=== PATIENT | male | born 1940 | race Caucasian/White ===

== ENCOUNTER → 2016-05-29 | Outpatient (CLI) | payer MEDICARE, BC ==
[2016-05-29 09:51] LABS: ANION GAP 10 (5-19); BLOOD UREA NITROGEN 25 mg/dL (7-20); CALCIUM 9.7 mg/dL (8.4-10.2); CARBON DIOXIDE 29 mmol/L (22-30); CHLORIDE 106 mmol/L (98-107); CHOLESTEROL 112.81 mg/dL (0-200); CREATININE RESULT 0.99 mg/dL (0.52-1.25); Direct HDL 41 mg/dL (>40); GLUCOSE 95 mg/dL (75-110); POTASSIUM 4.7 mmol/L (3.6-5.0); SODIUM 144.6 mmol/L (137-145); TRIGLYCERIDES 81 mg/dL (<150)
[2016-05-29 10:01] LABS: DIRECT LDL 43 mg/dL (<100)
== END ==
LOC: OD 08:28
PROVIDERS: ATTEND Internal Medicine Cardiovascular Disease
DX: I47.1 Supraventricular tachycardia (principal); E78.00 Pure hypercholesterolemia, unspecified
CPT/HCPCS: 36415; 80048; 80061; 84439; 84443

== ENCOUNTER → 2016-12-09 | Outpatient (CLI) | payer MEDICARE, BC ==
[2016-12-09 10:07] LABS: ANION GAP 11 (5-19); BLOOD UREA NITROGEN 22 mg/dL (7-20); CALCIUM 9.3 mg/dL (8.4-10.2); CARBON DIOXIDE 27 mmol/L (22-30); CHLORIDE 108 mmol/L (98-107); CHOLESTEROL 104.71 mg/dL (0-200); CREATININE RESULT 0.99 mg/dL (0.52-1.25); Direct HDL 44 mg/dL (>40); GLUCOSE 87 mg/dL (75-110); POTASSIUM 4.5 mmol/L (3.6-5.0); SODIUM 146.3 mmol/L (137-145); TRIGLYCERIDES 60 mg/dL (<150)
[2016-12-09 10:19] LABS: DIRECT LDL 43 mg/dL (<100)
== END ==
LOC: OD 07:46
PROVIDERS: ATTEND Internal Medicine Cardiovascular Disease
DX: E78.00 Pure hypercholesterolemia, unspecified (principal); I47.1 Supraventricular tachycardia
CPT/HCPCS: 36415; 80048; 80061

== ENCOUNTER → 2017-06-08 | Outpatient (CLI) | payer MEDICARE, BC ==
[2017-06-08 10:51] LABS: ANION GAP 8 (5-19); BLOOD UREA NITROGEN 20 mg/dL (7-20); CALCIUM 9.6 mg/dL (8.4-10.2); CARBON DIOXIDE 31 mmol/L (22-30); CHLORIDE 107 mmol/L (98-107); CHOLESTEROL 108.73 mg/dL (0-200); GLUCOSE 95 mg/dL (75-110); POTASSIUM 4.9 mmol/L (3.6-5.0); SODIUM 145.9 mmol/L (137-145); TRIGLYCERIDES 58 mg/dL (<150)
[2017-06-08 11:01] LABS: DIRECT LDL 46 mg/dL (<100)
== END ==
LOC: OD 08:55
PROVIDERS: ATTEND Internal Medicine Cardiovascular Disease
DX: E78.00 Pure hypercholesterolemia, unspecified (principal); I47.1 Supraventricular tachycardia
CPT/HCPCS: 36415; 80048; 80061

== ENCOUNTER → 2017-07-21 | Outpatient (CLI) | payer MEDICARE, BC ==
[2017-07-21 10:18] LABS: HEMATOCRIT 38.9 % (37.9-51.0); HEMOGLOBIN 13.5 g/dL (13.5-17.0); MEAN CORPUSCULAR HEMOGLOBIN 31.5 pg (27.0-33.4); MEAN CORPUSCULAR HGB CONC 34.6 g/dL (32.0-36.0); MEAN CORPUSCULAR VOLUME 91 fl (80-97); PLATELET COUNT 207 10^3/uL (150-450); RED BLOOD COUNT 4.27 10^6/uL (4.35-5.55); RED CELL DISTRIBUTION WIDTH 13.4 % (11.5-14.0); WHITE BLOOD COUNT 5.4 10^3/uL (4.0-10.5)
[2017-07-21 10:52] LABS: ANION GAP 11 (5-19); BLOOD UREA NITROGEN 21 mg/dL (7-20); CALCIUM 9.4 mg/dL (8.4-10.2); CARBON DIOXIDE 29 mmol/L (22-30); CHLORIDE 107 mmol/L (98-107); GLUCOSE 91 mg/dL (75-110); POTASSIUM 4.5 mmol/L (3.6-5.0); SODIUM 146.9 mmol/L (137-145)
== END ==
LOC: OD 09:06
PROVIDERS: ATTEND Internal Medicine Cardiovascular Disease
DX: I47.1 Supraventricular tachycardia (principal)
CPT/HCPCS: 36415; 80048; 83735; 85027

== ENCOUNTER → 2019-02-27 | Outpatient (CLI) | payer MEDICARE, BC ==
[2019-02-27 09:56] LABS: ALBUMIN 3.7 g/dL (3.5-5.0); ALKALINE PHOSPHATASE 61 U/L (38-126); ANION GAP 5 (5-19); ASPARTATE AMINO TRANSFERASE 61 U/L (17-59); BILIRUBIN,DIRECT 0.2 mg/dL (0.0-0.4); BILIRUBIN,TOTAL 0.9 mg/dL (0.2-1.3); BLOOD UREA NITROGEN 25 mg/dL (7-20); CARBON DIOXIDE 31 mmol/L (22-30); CHLORIDE 104 mmol/L (98-107); CHOLESTEROL 132.09 mg/dL (0-200); GLUCOSE 88 mg/dL (75-110); TOTAL PROTEIN 6.7 g/dL (6.3-8.2); TRIGLYCERIDES 75 mg/dL (<150)
[2019-02-27 10:06] LABS: DIRECT LDL 55 mg/dL (<100)
== END ==
LOC: OD 08:48
PROVIDERS: ATTEND Internal Medicine Cardiovascular Disease
DX: E78.00 Pure hypercholesterolemia, unspecified (principal); E03.9 Hypothyroidism, unspecified; I10 Essential (primary) hypertension; I47.1 Supraventricular tachycardia; Z79.899 Other long term (current) drug therapy
CPT/HCPCS: 36415; 80048; 80061; 80076; 84443

== ENCOUNTER → 2019-10-11 | Outpatient (CLI) | payer MEDICARE, BC ==
[2019-10-11 08:39] LABS: ALBUMIN 3.8 g/dL (3.5-5.0); ALKALINE PHOSPHATASE 84 U/L (38-126); ASPARTATE AMINO TRANSFERASE 69 U/L (17-59); BILIRUBIN,TOTAL 0.6 mg/dL (0.2-1.3); CHOLESTEROL 94.15 mg/dL (0-200); TOTAL PROTEIN 6.3 g/dL (6.3-8.2); TRIGLYCERIDES 58 mg/dL (<150)
[2019-10-11 08:45] LABS: BLOOD UREA NITROGEN 20 mg/dL (7-20); CALCIUM 8.8 mg/dL (8.4-10.2); CARBON DIOXIDE 29 mmol/L (22-30); GLUCOSE 94 mg/dL (75-110); POTASSIUM 4.4 mmol/L (3.6-5.0)
[2019-10-11 08:50] LABS: ANION GAP 5 (5-19); CHLORIDE 110 mmol/L (98-107); DIRECT LDL 46 mg/dL (<100)
== END ==
LOC: OD 07:15
PROVIDERS: ATTEND Internal Medicine Cardiovascular Disease
DX: R94.5 Abnormal results of liver function studies (principal); E78.00 Pure hypercholesterolemia, unspecified; I25.2 Old myocardial infarction; I10 Essential (primary) hypertension; I47.1 Supraventricular tachycardia; Z79.899 Other long term (current) drug therapy
CPT/HCPCS: 36415; 80048; 80061; 80076; 83735; 84443